=== PATIENT | male | born 1995 | race African-American/Black ===

== ENCOUNTER 2020-04-02 23:46 | Inpatient (IN) | payer OTHER ==
[2020-04-03] MEDS ORDERED: ACETAMINOPHEN 500 MG TABLET (FP) PO ONE (01:23)
[2020-04-03] MEDS ORDERED: SODIUM CHLORIDE 0.9% 500 ML INFUS.BAG IV ONE (01:23)
--- NOTE | 2020-04-03 01:25 | PDOC ---
History of Present Illness - General Chief Complaint: Palpitations Stated Complaint: PALPITATIONS Time Seen by Provider: 04/03/20 01:13 - History of Present Illness Initial Comments: Nazario Otoole is a 24 y/o male with PMH significant for HTN and HLD, presenting today with heart palpitations. Reports that he has had palpitations for many years and they occur intermittently. Unsure about what brings them on. Seen at [facility] last week. Reports that EKG there was normal. He was seen at Dr. Levy's office today and was told he had an abnormal EKG finding and to return in a week for a stress test. Today, presents with heart palpitations and headache. States that his symptoms have not changed nor worsened in the past week since being at [facility] and at the earth science teacher's office. No shortness of breath. No leg swelling. No cough. No back pain. Reports left sided chest pain that is worse with movement and palpation. No pleuritic chest pain. Pt states that he does not drink or use caffeine. Reports intermittent tobacco smoking hx. No other drug use. Past History - Medical History Allergies/Adverse Reactions: Allergies Allergy/AdvReac Type Severity Reaction Status Date / Time No Known Allergies Allergy Unverified 04/03/20 00:31 Home Medications: Ambulatory Orders Atorvastatin Ca [Lipitor] 40 mg PO HS #30 tablet 04/03/20 Metoprolol Succinate 25 mg PO BID #60 tab.sr 04/03/20 Omeprazole 40 mg PO DAILY #30 cap.sr 04/03/20 Cardiac Disorders: Yes COPD: No HTN: Yes Hypercholesterolemia: Yes - Psycho-Social/Smoking History Smoking History: Never smoked Have you smoked in the past 12 months: No Information on smoking cessation initiated: No - Substance Abuse Hx (Audit-C & DAST Scrn) How often the patient has a drink containing alcohol: Monthly or less Number of drinks the patient has on a typical day: 1 or 2 How often the patient has six or more drinks on one occasion: Less than monthly Score: In Men: 4 or > Positive; In Women: 3 or > Positive: 2 Screen Result (Pos requires Nsg. Audit-10AR): Negative In the last yr the pt used illegal drug/Rx for NonMed reason: No Score: Yes response is considered Positive: 0 Screen Result (Positive result requires Nsg. DAST-10): Negative Review of Systems - Review of Systems Comments:: GENERAL/CONSTITUTIONAL: No fever or chills. No weakness._ HEAD, EYES, EARS, NOSE AND THROAT: No change in vision. No change in hearing. No sore throat._ CARDIOVASCULAR: Reports heart palpitations and chest pain. No shortness of breath_ RESPIRATORY: Denies cough, hemoptysis_ GASTROINTESTINAL: No nausea, vomiting, diarrhea or constipation._ GENITOURINARY: No dysuria, frequency, or change in urination._ MUSCULOSKELETAL: No joint or muscle swelling or pain. No neck or back pain._ SKIN: No rash_ NEUROLOGIC: Reports headache. No vertigo, loss of consciousness, or change in strength/sensation._ ENDOCRINE: No increased thirst. No abnormal weight change_ HEMATOLOGIC/LYMPHATIC: No anemia, easy bleeding, or history of blood clots._ ALLERGIC/IMMUNOLOGIC: No hives or skin allergy._ *Physical Exam - Vital Signs Last Vital Signs Temp Pulse Resp BP Pulse Ox 98.8 F 70 18 132/72 98 04/03/20 15:22 04/03/20 15:22 04/03/20 15:22 04/03/20 15:22 04/03/20 11:01 - Physical Exam GENERAL: Awake, alert, and oriented to person/place/time, in no acute distress_ HEAD: No signs of trauma, normocephalic, atraumatic _ EYES: PERRLA, EOMI, sclera anicteric, conjunctiva clear_ ENT: Hearing grossly normal, nares patent, oropharynx clear without exudates. No uvular deviation. Moist mucosa_ NECK: Normal ROM, supple, no lymphadenopathy, JVD, or masses_ LUNGS: No distress, speaks in full sentences, clear to auscultation bilaterally _ HEART: Regular rate and rhythm, normal S1 and S2, no murmurs appreciated, peripheral pulses normal and equal bilaterally._ CHEST: TTP left anterior chest wall with no signs of obvious chest trauma or bruising. ABDOMEN: Soft, nontender, normoactive bowel sounds. No guarding, no rebound. No masses_ EXTREMITIES: Normal inspection, Normal range of motion, no edema. No clubbing or cyanosis_ NEUROLOGICAL: Cranial nerves II through XII grossly intact. Normal speech, normal gait, no focal sensorimotor deficits _ SKIN: Warm, Dry, normal turgor, no rashes or lesions noted_ ED Treatment Course - LABORATORY CBC & Chemistry Diagram: 04/03/20 02:00 04/03/20 02:00 - ADDITIONAL ORDERS Additional order review: Laboratory Results 04/03/20 04/03/20 02:00 02:00 Sodium 140 Potassium 3.7 Chloride 103 Carbon Dioxide 30 Anion Gap 7 L BUN 8.7 Creatinine 0.8 Est GFR (CKD-EPI)AfAm 142.89 Est GFR (CKD-EPI)NonAf 123.29 Random Glucose 81 Hemoglobin A1c % 5.4 Calcium 9.3 Magnesium 2.1 Total Bilirubin 0.5 AST 24 ALT 29 Alkaline Phosphatase 93 Creatine Kinase 164 CK-MB (CK-2) < 1.0 Troponin I < 0.02 Total Protein 7.9 Albumin 4.0 Triglycerides 70 Cholesterol 125 Total LDL Cholesterol 75 HDL Cholesterol 35 L TSH 1.25 04/03/20 02:00 RBC 5.22 MCV 88.0 MCHC 32.6 RDW 14.0 MPV 7.6 Neutrophils % 58.3 Lymphocytes % 29.6 Monocytes % 11.1 H Eosinophils % 0.5 Basophils % 0.5 - RADIOLOGY Radiology Studies Ordered: Category Date Time Status CHEST PA & LAT [RAD] Stat Radiology 04/03/20 01:23 Completed - Medications Given in the ED: ED Medications Discontinued Medications Generic Name Dose Route Start Last Admin Trade Name Freq PRN Reason Stop Dose Admin Acetaminophen 1,000 mg 04/03/20 01:23 04/03/20 02:41 Tylenol - PO 04/03/20 01:24 1,000 mg ONCE ONE Administration Acetaminophen 650 mg 04/03/20 15:27 04/03/20 15:44 Tylenol - PO 650 mg Q6H PRN Administration Fever Or Pain Enoxaparin Sodium 40 mg 04/03/20 10:00 04/03/20 09:33 Lovenox - SQ 40 mg DAILY RYANN Administration Potassium Chloride 40 meq 04/03/20 08:00 04/03/20 09:32 K-Dur - PO 04/03/20 08:01 40 meq ONCE ONE Administration Sodium Chloride 1,000 ml 04/03/20 01:23 04/03/20 02:41 Normal Saline - IV 04/03/20 01:24 1,000 ml ONCE ONE Administration Medical Decision Making - Medical Decision Making 04/03/20 01:24 24M presenting today with heart palpitations. Seen prior at [facility] last week and with Dr. Levy in his office today. -cbc, cmp -ekg, trop, cxr -tsh -fluids -tylenol 04/03/20 03:23 CXR negative for acute intrathoracic pathology. No cardiomegaly. EKG 78bpm, NSR, CO 108, QTc 414, minimal LVH, no ST elevation, compared to EKG on 09/2019 CO has mildly shortened. Nml axis. Labs reviewed. Laboratory Last Values WBC 9.1 K/mm3 (4.0-10.0) 04/03/20 02:00 RBC 5.22 M/mm3 (4.00-5.60) 04/03/20 02:00 Hgb 15.0 GM/dL (11.7-16.9) 04/03/20 02:00 Hct 45.9 % (35.4-49) 04/03/20 02:00 MCV 88.0 fl (80-96) 04/03/20 02:00 MCH 28.7 pg (25.7-33.7) 04/03/20 02:00 MCHC 32.6 g/dl (32.0-35.9) 04/03/20 02:00 RDW 14.0 % (11.9-15.9) 04/03/20 02:00 Plt Count 233 K/MM3 (134-434) 04/03/20 02:00 MPV 7.6 fl (7.5-11.1) 04/03/20 02:00 Absolute Neuts (auto) 5.3 K/mm3 (1.5-8.0) 04/03/20 02:00 Neutrophils % 58.3 % (42.8-82.8) 04/03/20 02:00 Lymphocytes % 29.6 % (8-40) 04/03/20 02:00 Monocytes % 11.1 % (3.8-10.2) H 04/03/20 02:00 Eosinophils % 0.5 % (0-4.5) 04/03/20 02:00 Basophils % 0.5 % (0-2.0) 04/03/20 02:00 Nucleated RBC % 0 % (0-0) 04/03/20 02:00 Sodium 140 mmol/L (136-145) 04/03/20 02:00 Potassium 3.7 mmol/L (3.5-5.1) 04/03/20 02:00 Chloride 103 mmol/L (98-107) 04/03/20 02:00 Carbon Dioxide 30 mmol/L (21-32) 04/03/20 02:00 Anion Gap 7 MMOL/L (8-16) L 04/03/20 02:00 BUN 8.7 mg/dL (7-18) 04/03/20 02:00 Creatinine 0.8 mg/dL (0.55-1.3) 04/03/20 02:00 Est GFR (CKD-EPI)AfAm 142.89 04/03/20 02:00 Est GFR (CKD-EPI)NonAf 123.29 04/03/20 02:00 Random Glucose 81 mg/dL (74-106) 04/03/20 02:00 Calcium 9.3 mg/dL (8.5-10.1) 04/03/20 02:00 Total Bilirubin 0.5 mg/dL (0.2-1) 04/03/20 02:00 AST 24 U/L (15-37) 04/03/20 02:00 ALT 29 U/L (13-61) 04/03/20 02:00 Alkaline Phosphatase 93 U/L (45-117) 04/03/20 02:00 Creatine Kinase 164 U/L (26-308) 04/03/20 02:00 Creatine Kinase Index No Result Required. 04/03/20 02:00 CK-MB (CK-2) < 1.0 ng/mL (0.5-3.6) 04/03/20 02:00 Troponin I < 0.02 ng/ml (0.00-0.05) 04/03/20 02:00 Total Protein 7.9 g/dl (6.4-8.2) 04/03/20 02:00 Albumin 4.0 g/dl (3.4-5.0) 04/03/20 02:00 TSH 1.25 uIU/ml (0.358-3.74) 04/03/20 02:00 Free T4 1.55 ng/dl (0.76-1.16) H 04/03/20 02:00 04/03/20 03:51 Pt reassessed. Reports continued palpitations. Given shortened CO on current EKG, and hx of a-fib on prior EKG in 2008, plan to admit for tele obs. 04/03/20 05:39 D/w Dr. Burns who accepts the patient for tele obs. Discharge - Discharge Information Problems reviewed: Yes Clinical Impression/Diagnosis: Palpitations Condition: Stable - Admission Yes - Follow up/Referral - Patient Discharge Instructions - Post Discharge Activity
--- NOTE | 2020-04-03 01:58 | PDOC ---
Documentation entered by Malathi Lopez SCRIBE, acting as scribe for Andrea Otoole MD. Andrea Otoole MD: This documentation has been prepared by the John white Lincy, SCRIBE, under my direction and personally reviewed by me in its entirety. I confirm that the documentation accurately reflects all work, treatment, procedures, and medical decision making performed by me. Attending Attestation - Resident Resident Name: Carlton Younger - ED Attending Attestation I have performed the following: I have examined & evaluated the patient, The case was reviewed & discussed with the resident, I agree w/resident's findings & plan, Exceptions are as noted - HPI HPI: 04/09/20 19:58 See resident HPI - Physicial Exam PE: 04/09/20 19:58 Agree with documented exam - Medical Decision Making 04/09/20 19:58 24M with palpitations, prior abnormal rhythms in past including paroxysmal episodes of AFib f/u labs, cxr, ekg dispo per clinical course ekg with shortened VT, pt persistently experiencing palpitations admit to tele obs Discharge - Discharge Information Problems reviewed: Yes Clinical Impression/Diagnosis: Palpitations Condition: Stable - Follow up/Referral - Patient Discharge Instructions - Post Discharge Activity
[2020-04-03 02:23] LABS: BASO % 0.5 % (0-2.0); EOS % 0.5 % (0-4.5); HEMATOCRIT 45.9 % (35.4-49); LYMPH % 29.6 % (8-40); MCH 28.7 pg (25.7-33.7); MCHC 32.6 g/dl (32.0-35.9); MEAN PLT VOLUME 7.6 fl (7.5-11.1); MONO % 11.1 % (3.8-10.2); NEUT % 58.3 % (42.8-82.8); PLATELET COUNT 233 K/MM3 (134-434); RBC 5.22 M/mm3 (4.00-5.60); WHITE BLOOD COUNT 9.1 K/mm3 (4.0-10.0)
[2020-04-03] MEDS ORDERED: ACETAMINOPHEN 325 MG TABLET (FP) ONE (02:34)
[2020-04-03 02:49] LABS: ALK PHOS 93 U/L (45-117); ANION GAP 7 MMOL/L (8-16); BILIRUBIN,TOTAL 0.5 mg/dL (0.2-1); BLOOD UREA NITROGEN 8.7 mg/dL (7-18); CALCIUM 9.3 mg/dL (8.5-10.1); CHLORIDE 103 mmol/L (98-107); CO2 30 mmol/L (21-32); CREATININE 0.8 mg/dL (0.55-1.3); GLUCOSE,RANDOM 81 mg/dL (74-106); POTASSIUM 3.7 mmol/L (3.5-5.1); SGOT/AST 24 U/L (15-37); SGPT/ALT 29 U/L (13-61); SODIUM 140 mmol/L (136-145); TOT PROT 7.9 g/dl (6.4-8.2)
--- NOTE | 2020-04-03 04:52 | PN ---
Teaching Attending Note Name of Resident: Judith Burns ATTENDING PHYSICIAN STATEMENT I saw and evaluated the patient. I reviewed the resident's note and discussed the case with the resident. I agree with the resident's findings and plan as documented. SUBJECTIVE: Patient is a 24 year old man with PMH of HTN, Tobacco use, ?Paroxysmal Afib in 2008, Marijuana use and HLD presenting to the ER with heart palpitations. Reports that he has had palpitations for many years and they occur intermittently. Unsure about what brings them on. Seen at [facility] last week. Reports that EKG there was normal. He was seen at Dr. Levy's office today and was told he had an abnormal EKG finding and to return in a week for a stress test. Has associated headache. Reports left sided chest pain that is worse with movement and palpation. 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 No shortness of breath, leg swelling, cough, fever, chills, back pain, dysuria or diarrhea. Says that he does not drink alcohol or use caffeine. Denies alcohol or illicit drug use. No sick contacts or recent travels. Family history of DM and HTN in both parents. OBJECTIVE: Alert Vital Signs Period Temp Pulse Resp BP Sys/Pelayo Pulse Ox Last 24 Hr 98.7 F 97 21 142/86 98 HEENT: No Jaundice, eye redness or discharge, PERRLA, EOMI. Normocephalic, atraumatic. External ears are normal and hearing is grossly intact. No nasal discharge. Neck: Supple, nontender. No palpable adenopathy or thyromegaly. No JVD Chest: Good effort. Clear to auscultation and percussion. Heart: Regular. No S3, rub or murmur Abdomen: Not distended, soft, nontender and no HSM. No rebound or guarding. Normal bowel sounds. Ext: Peripheral pulses intact. No leg edema. Skin: Warm and dry. No petechiae, rash or ecchymosis. Neuro: Alert. Oriented x3. CN 2-12 grossly intact. Sensation grossly intact in all four extremities and DTR are symmetric. Psych: Appropriate mood and affect. Good insight. Abnormal Lab Results 04/03/20 04/03/2020 02:00 02:00 02:00 Monocytes % 11.1 H Anion Gap 7 L Free T4 1.55 H Current Medications Generic Name Dose Route Start Last Admin Trade Name Juan Carlos PRN Reason Stop Dose Admin Enoxaparin Sodium 40 mg 04/03/20 10:00 Lovenox - SQ DAILY [facility] Home Medications Medication Instructions Recorded Atorvastatin Ca [Lipitor] 40 mg PO HS 04/03/20 Hydrochlorothiazide [Hctz -] 12.5 mg PO DAILY 04/03/20 Metoprolol Succinate 25 mg PO DAILY 04/03/20 Omeprazole 40 mg PO DAILY 04/03/20 ASSESSMENT AND PLAN: 1. Palpitations - No acute abnormality on CXR. Free T4 is elevated. EKG shows NSR at 78/minute and QTc 414, LVH with no significant ST-T wave changes. Initial troponin is negative. Free T4 is elevated - will consult Endocrine. Will admit to telemetry, get urinalysis, lipid profile, urine toxicology, ECHO, fasting lipids and consult Cardiology. May need prolonged outpatient cardiac monitoring. Viral testing for COVID-19 ordered and patient placed on airborne, droplet and contact isolation. 2. Tobacco Use Counseled on risks associated with tobacco use. We will provide patient all the necessary assistance to facilitate smoking cessation and prescribe Nicotine patch. 3. Morbid obesity Counseled on the risks associated with obesity. Will provide patient all the necessary assistance, counseling and positive reinforcement to facilitate weight loss. Consult museum director. 4. Hypertension Will restart suitable outpatient antihypertensive drugs when clinically appropriate. Subsequently, will revise regimen to ensure [id number] excellent BP control. Patient counseled on the injurious effects of uncontrolled hypertension. Nonpharmacologic measures to control hypertension like weight loss, salt restriction and exercise stressed. Importance of adherence to treatment regimen and attainment of normotension emphasized. 5. DVT prophylaxis - Lovenox 40 mg SQ q 12 hours. 6. Advance directives - Full code
--- NOTE | 2020-04-03 07:26 | HP ---
CHIEF COMPLAINT: My heart is beating fast PCP: Dr. ANDUJAR HISTORY OF PRESENT ILLNESS: 24 y M with a PMH of HTN, HLD, and Acid reflux, presents with noticeable rapid heart beat for 7 days. Associated with Dizziness, sweating, chest pain, SOB, blurry vision and headache. He reports that he has had palpitations for years intermittently with no precipitating events. Since last week his palpitations has increased in frequency. He also reports that he has stopped smoking Marijuana 2 weeks ago. He was recently seen at Dr. John's office and was told that he had an abnormal EKG. ER course was notable for: (1) Palpitations (2) (3) Recent Travel: Denies PAST MEDICAL HISTORY: HTN, HLD, Acid reflux PAST SURGICAL HISTORY: Denies Social History: Smoking: Denies Alcohol: Denies Drugs: Marujana, stopped 2 weeks ago Allergies No Known Allergies Allergy (Unverified 04/03/20 00:31) HOME MEDICATIONS: Home Medications Medication Instructions Recorded Atorvastatin Ca [Lipitor] 40 mg PO HS 04/03/20 Hydrochlorothiazide [Hctz -] 12.5 mg PO DAILY 04/03/20 Metoprolol Succinate 25 mg PO DAILY 04/03/20 Omeprazole 40 mg PO DAILY 04/03/20 REVIEW OF SYSTEMS CONSTITUTIONAL: Present: diaphoresis Absent: fever, chills, generalized weakness, malaise, loss of appetite HEENT: Absent: rhinorrhea, nasal congestion, throat pain, throat swelling, difficulty swallowing, mouth swelling, ear pain, eye pain, visual changes CARDIOVASCULAR: Present: Chest Pain, Palpitations Absent: lightheadedness, peripheral edema RESPIRATORY: Absent: cough, shortness of breath, dyspnea with exertion, orthopnea GASTROINTESTINAL: Absent: abdominal pain, abdominal distension, nausea, vomiting, diarrhea, constipation, GENITOURINARY: Absent: dysuria, frequency, urgency, hesitancy, hematuria, flank pain, genital pain NEUROLOGIC: Present: headache Absent: focal weakness or paresthesias, dizziness, bladder or bowel incontinence PSYCHIATRIC: Absent: anxiety, depression, PHYSICAL EXAMINATION Vital Signs - 24 hr 04/03/20 04/03/20 04/03/20 00:28 03:10 07:00 Temperature 98.7 F 98.7 F Pulse Rate 97 H 72 Pulse Rate [ 93 H Left Radial] Respiratory 21 H 20 18 Rate Blood Pressure 142/86 149/93 Blood Pressure 140/82 [Left Arm] O2 Sat by Pulse 98 97 Oximetry (%) GENERAL: Awake, alert, and fully oriented, in no acute distress. HEAD: Normal with no signs of trauma. EYES: Pupils equal, round and reactive to light, extraocular movements intact, sclera anicteric, conjunctiva clear. EARS, NOSE, THROAT: Ears normal, nares patent, oropharynx clear without exu dates. Moist mucous membranes. NECK: supple without lymphadenopathy, JVD, or masses. LUNGS: Breath sounds equal, clear to auscultation bilaterally. No wheezes, and no crackles. HEART: Increased rate and regular rhythm, normal S1 and S2 without murmur, rub or gallop, Tenderness to palpation of Left chest wall. ABDOMEN: Soft, nontender, not distended, normoactive bowel sounds, no guarding, no rebound, no masses. MUSCULOSKELETAL: Normal range of motion at all joints. No bony deformities or tenderness. No CVA tenderness. UPPER EXTREMITIES: 2+ pulses, warm, well-perfused. No cyanosis. No clubbing. No peripheral edema. LOWER EXTREMITIES: 2+ pulses, warm, well-perfused. No calf tenderness. No peripheral edema. PSYCHIATRIC: Cooperative. Good eye contact. Appropriate mood and affect. SKIN: Warm, dry, no rashes or lesions noted Laboratory Results - last 24 hr 04/03/20 04/03/20 04/03/20 02:00 02:00 02:00 WBC 9.1 RBC 5.22 Hgb 15.0 Hct 45.9 MCV 88.0 MCH 28.7 MCHC 32.6 RDW 14.0 Plt Count 233 MPV 7.6 Absolute Neuts (auto) 5.3 Neutrophils % 58.3 Lymphocytes % 29.6 Monocytes % 11.1 H Eosinophils % 0.5 Basophils % 0.5 Nucleated RBC % 0 Sodium 140 Potassium 3.7 Chloride 103 Carbon Dioxide 30 Anion Gap 7 L BUN 8.7 Creatinine 0.8 Est GFR (CKD-EPI)AfAm 142.89 Est GFR (CKD-EPI)NonAf 123.29 Random Glucose 81 Calcium 9.3 Total Bilirubin 0.5 AST 24 ALT 29 Alkaline Phosphatase 93 Creatine Kinase 164 Creatine Kinase Index No Result Required. CK-MB (CK-2) < 1.0 Troponin I < 0.02 Total Protein 7.9 Albumin 4.0 TSH 1.25 Free T4 1.55 H ASSESSMENT/PLAN: This is a 24 y M with a PMH of HTN, HLD, and Acid reflux, presents with noticeable rapid heart beat for 7 days. Associated with Dizziness, sweating, chest pain, SOB, blurry vision and headache. EKG was significant for MT shortening and evidence of LVH. He is admitted for Telemetry for Monitoring. #Palpitations: Assessment: -Hx of Afib finding on an EKG in 2008 -Worsening of his palpitations with increased frequency for 1 week -EKG revealed MT shortening and evidence of LVH Plan: - Ordered Echo with Doppler - Ordered UA, Urine Toxicology, - Consulted Cardio Henrry Sherman, will F/U with recs - Consulted Endo Smith Wooten for evaluation of Low T4 and Palpitations, will F/U with recs - Recommends prolonged Outpatient cardiac monitoring #Morbid Obesity: Assessment: - BMI 42.9 - Patient is concerned about his weight gain Plan: -Ordered Fasting lipid pannel - Consult commercial installer - counseled on the risks associated with Morbid Obesity - Will provide patient with information and positive reinforcements to help facilitate weight loss # DVT Prophylaxis: Levonox 40 mg # Disposition: Admit to Telemetry IVF: none GI: none Diet: Low sodium Consults: Cardio Henrry Sherman Endo Smith Wooten Visit type - Emergency Visit Emergency Visit: Yes ED Registration Date: 04/03/20 Care time: The patient presented to the Emergency Department on the above date and was hospitalized for further evaluation of their emergent condition. - New Patient This patient is new to me today: Yes Date on this admission: 04/04/20 - Critical Care Critical Care patient: No ATTENDING PHYSICIAN STATEMENT I saw and evaluated the patient. I reviewed the resident's note and discussed the case with the resident. I agree with the resident's findings and plan as documented. SUBJECTIVE: OBJECTIVE: ASSESSMENT AND PLAN:
[2020-04-03] MEDS ORDERED: POTASSIUM CHLORIDE TABS 20 MEQ TABLET.ER (FP) PO ONE (08:00)
[2020-04-03 08:12] LABS: CHOLESTEROL 125 mg/dL (50-200); HDL CHOLESTEROL 35 mg/dL (40-60); LDL CHOLESTEROL (ONLY SJRH) 75 mg/dL (5-100); MAGNESIUM 2.1 mg/dL (1.8-2.4); TRIGLYCERIDES 70 mg/dL (0-150)
[2020-04-03] MEDS ORDERED: ENOXAPARIN NA (PORCINE) 40 MG/0.4 ML DISP.SYRIN SQ SCH (10:00)
[2020-04-03 10:30] VITALS: TEMP 98.8
[2020-04-03 11:01] VITALS: BMI 37.9
--- NOTE | 2020-04-03 12:43 | CON.CARD ---
Consult Consult Specialty:: Cardiology (Coverage for Dr. Levy) Referred by:: Hosptitalist service Reason for Consultation:: Cardiac evaluation - History of Present Illness Chief Complaint: Palpitations History of Present Illness: Patient is a 24 year old male with history of HTN and hypercholesterolemia who presents with palpitations. He was seen by Dr. Levy in the office for this reason and was scheduled for stress testing and further cardiac work up. He reports palpitations for many years and they have occurred intermittently. He denies chest pain or shortness of breath. He denies fever or chills. He denies headache or lightheadedness. He denies nausea, vomiting, diarrhea or abdominal pain. Denies any syncope. Denies any drug use. - History Source History Provided By: Patient, Medical Record Limitations to Obtaining History: No Limitations - Past Surgical History Past Surgical History: Yes: None - Alcohol/Substance Use Hx Alcohol Use: No History of Substance Use: reports: Marijuana - Smoking History Smoking history: Former smoker Have you smoked in the past 12 months: Yes Aproximately how many cigarettes per day: 2 If you are a former smoker, when did you quit?: 6 months ago Home Medications - Allergies Allergies/Adverse Reactions: Allergies Allergy/AdvReac Type Severity Reaction Status Date / Time No Known Allergies Allergy Unverified 04/03/20 00:31 - Home Medications Home Medications: Ambulatory Orders Atorvastatin Ca [Lipitor] 40 mg PO HS 04/03/20 Hydrochlorothiazide [Hctz -] 12.5 mg PO DAILY 04/03/20 Metoprolol Succinate 25 mg PO DAILY 04/03/20 Omeprazole 40 mg PO DAILY 04/03/20 Review of Systems - Review of Systems Constitutional: denies: Chills, Fever Cardiovascular: reports: Palpitations. denies: Chest Pain, Shortness of Breath Respiratory: denies: Cough, Hemoptysis, Orthopnea, PND, SOB, SOB on Exertion, Wheezing Gastrointestinal: denies: Abdominal Pain, Constipation, Diarrhea, Melena, Nausea, Rectal Bleeding, Vomiting Musculoskeletal: denies: Back Pain, Joint Pain Neurological: denies: Dizziness, Headache, Seizure, Syncope Vital Signs: Vital Signs Temperature 98.8 F 04/03/20 11:01 Pulse Rate 87 04/03/20 11:01 Respiratory Rate 18 04/03/20 11:01 Blood Pressure 141/43 L 04/03/20 11:01 O2 Sat by Pulse Oximetry (%) 98 04/03/20 11:01 Eyes: Yes: PERRL HENT: Yes: Atraumatic Neck: Yes: Supple Respiratory: Yes: CTA Bilaterally Gastrointestinal: Yes: Normal Bowel Sounds, Soft. No: Tenderness Cardiovascular: Yes: Regular Rate and Rhythm JVD: No Carotid Bruit: No PMI: Non-Displaced Heart Sounds: Yes: S1, S2. No: Gallop Murmur: No: Systolic Murmur, Diastolic Murmur Edema: No - Other Data Labs, Other Data: CBC, BMP 04/03/20 02:00 04/03/20 02:00 Troponin, BNP 04/03/20 02:00 Troponin I < 0.02 Laboratory Results - last 24 hr 04/03/20 04/03/20 04/03/20 02:00 02:00 02:00 WBC 9.1 RBC 5.22 Hgb 15.0 Hct 45.9 MCV 88.0 MCH 28.7 MCHC 32.6 RDW 14.0 Plt Count 233 MPV 7.6 Absolute Neuts (auto) 5.3 Neutrophils % 58.3 Lymphocytes % 29.6 Monocytes % 11.1 H Eosinophils % 0.5 Basophils % 0.5 Nucleated RBC % 0 Sodium 140 Potassium 3.7 Chloride 103 Carbon Dioxide 30 Anion Gap 7 L BUN 8.7 Creatinine 0.8 Est GFR (CKD-EPI)AfAm 142.89 Est GFR (CKD-EPI)NonAf 123.29 Random Glucose 81 Hemoglobin A1c % Calcium 9.3 Magnesium 2.1 Total Bilirubin 0.5 AST 24 ALT 29 Alkaline Phosphatase 93 Creatine Kinase 164 Creatine Kinase Index No Result Required. CK-MB (CK-2) < 1.0 Troponin I < 0.02 Total Protein 7.9 Albumin 4.0 Triglycerides 70 Cholesterol 125 Total LDL Cholesterol 75 HDL Cholesterol 35 L TSH 1.25 Free T4 1.55 H 04/03/20 02:00 WBC RBC Hgb Hct MCV MCH MCHC RDW Plt Count MPV Absolute Neuts (auto) Neutrophils % Lymphocytes % Monocytes % Eosinophils % Basophils % Nucleated RBC % Sodium Potassium Chloride Carbon Dioxide Anion Gap BUN Creatinine Est GFR (CKD-EPI)AfAm Est GFR (CKD-EPI)NonAf Random Glucose Hemoglobin A1c % 5.4 Calcium Magnesium Total Bilirubin AST ALT Alkaline Phosphatase Creatine Kinase Creatine Kinase Index CK-MB (CK-2) Troponin I Total Protein Albumin Triglycerides Cholesterol Total LDL Cholesterol HDL Cholesterol TSH Free T4 Imaging - Results Chest X-ray: Report Reviewed (Unremarkable) Problem List - Problems (1) Palpitation Code(s): R00.2 - PALPITATIONS (2) HLD (hyperlipidemia) Code(s): E78.5 - HYPERLIPIDEMIA, UNSPECIFIED (3) HTN (hypertension) Code(s): I10 - ESSENTIAL (PRIMARY) HYPERTENSION Assessment/Plan 1. Palpitations with previous history of PAF (in 2008) [id number] 1 2. HTN 3. Hypercholesterolemia PLAN: 1. court recording monitor unrevealing 2. Continue Metoprolol ER 25 mg but may be increased to twice a day 3. Continue Atorvastatin 40 mg QHS 4. Continue HCTZ 12.5 mg QD 5. Echocardiography and ETT can be done as outpatient with Dr. Levy 6. Extended heart monitoring can be done as outpatient for further recommendation Discharge planning and outpatient follow up with Dr. Levy. Cardiac testing is scheduled next week Prateek Garcia MD
--- NOTE | 2020-04-03 12:52 | DS ---
Physical Exam: SUBJECTIVE: Patient seen and examined. Medically stable for discharge with follow up with stress test next week. OBJECTIVE: Vital Signs Period Temp Pulse Resp BP Sys/Pelayo Pulse Ox Last 24 Hr 98.7 F-98.8 F 72-97 18-21 140-149/43-93 97-98 PHYSICAL EXAM GENERAL: The patient is awake, alert, and fully oriented, obese,in no acute distress. HEAD: Normal with no signs of trauma. EYES: PERRL, extraocular movements intact, sclera anicteric, conjunctiva clear. ENT: Ears normal, nares patent, oropharynx clear without exudates, moist mucous membranes. NECK: Trachea midline, full range of motion, supple. LUNGS: Breath sounds equal, clear to auscultation bilaterally, no wheezes, no crackles, no accessory muscle use. HEART: Regular rate and rhythm, S1, S2 without murmur, rub or gallop. ABDOMEN: Soft, nontender, nondistended, obese abdomen, normoactive bowel sounds, no guarding, no rebound, no hepatosplenomegaly, no masses. EXTREMITIES: 2+ pulses, warm, well-perfused, no edema. NEUROLOGICAL: Cranial nerves II through XII grossly intact. Normal speech, gait not observed. PSYCH: Normal mood, normal affect. SKIN: Warm, dry, normal turgor, no rashes or lesions noted. LABS Laboratory Results - last 24 hr 04/03/20 04/03/20 04/03/20 02:00 02:00 02:00 WBC 9.1 RBC 5.22 Hgb 15.0 Hct 45.9 MCV 88.0 MCH 28.7 MCHC 32.6 RDW 14.0 Plt Count 233 MPV 7.6 Absolute Neuts (auto) 5.3 Neutrophils % 58.3 Lymphocytes % 29.6 Monocytes % 11.1 H Eosinophils % 0.5 Basophils % 0.5 Nucleated RBC % 0 Sodium 140 Potassium 3.7 Chloride 103 Carbon Dioxide 30 Anion Gap 7 L BUN 8.7 Creatinine 0.8 Est GFR (CKD-EPI)AfAm 142.89 Est GFR (CKD-EPI)NonAf 123.29 Random Glucose 81 Hemoglobin A1c % Calcium 9.3 Magnesium 2.1 Total Bilirubin 0.5 AST 24 ALT 29 Alkaline Phosphatase 93 Creatine Kinase 164 Creatine Kinase Index No Result Required. CK-MB (CK-2) < 1.0 Troponin I < 0.02 Total Protein 7.9 Albumin 4.0 Triglycerides 70 Cholesterol 125 Total LDL Cholesterol 75 HDL Cholesterol 35 L TSH 1.25 Free T4 1.55 H 04/03/20 02:00 WBC RBC Hgb Hct MCV MCH MCHC RDW Plt Count MPV Absolute Neuts (auto) Neutrophils % Lymphocytes % Monocytes % Eosinophils % Basophils % Nucleated RBC % Sodium Potassium Chloride Carbon Dioxide Anion Gap BUN Creatinine Est GFR (CKD-EPI)AfAm Est GFR (CKD-EPI)NonAf Random Glucose Hemoglobin A1c % 5.4 Calcium Magnesium Total Bilirubin AST ALT Alkaline Phosphatase Creatine Kinase Creatine Kinase Index CK-MB (CK-2) Troponin I Total Protein Albumin Triglycerides Cholesterol Total LDL Cholesterol HDL Cholesterol TSH Free T4 HOSPITAL COURSE: Date of Admission:04/03/20 Date of Discharge: 04/03/20 his is a 24 y M with a PMH of HTN, HLD, and Acid reflux, presents with noticeable rapid heart beat for 7 days. Monitoring on telemetry over night and remained in sinus rhythm Continue with home medications Stress test scheduled for next week with Dr Levy Follow up apointment to be scheduled with milieu technician to monitor TFTs Advised to avoid all drugs, ETOH, and caffeine. Medically stable for discharge to home Minutes to complete discharge: 35 Discharge Summary Problems reviewed: Yes Reason For Visit: PALPITATIONS Condition: Improved - Instructions Diet, Activity, Other Instructions: DISCHARGE YOUR VISIT You came to the hospital because you experiencing a fast heart rate. You were monitored overnight and your heart was in a normal sinus rhythm. Your thyroid tests were abnormal and it could be contributing to the racing heart. You can schedule an appointment with the milieu technician to follow your thyroid. No new medications were started. You have an appointment with Dr Ro for a stress test next week. The test for COVID-19 was sent. It is not resulted yet. Conitnue to isolate yourself and wear a mask. IF the test is POSITIVE someone will call you. MEDICATIONS Please continue to take your home medications as prescribed. There was no change s DIET Continue your home diet ADDITIONAL CARE Please make an appointment with the milieu technician to schedule an appointment ADDITIONAL INFORMATION Please call 911 or come directly to the emergency department if you experience unusual headache, vision change, shortness of breath, chest pain, numbness, tingling, loss of alertness/awareness, loss of function, unusual bleeding or any alarming symptoms. Thank you for allowing me to care for you. Fco De Dios, [facility], [facility] [phone] Referrals: Smith Smart MD [Staff Physician] - Prateek Garcia MD [Staff Physician] - Disposition: HOME - Home Medications Comprehensive Discharge Medication List: Ambulatory Orders Atorvastatin Ca [Lipitor] 40 mg PO HS 04/03/20 Hydrochlorothiazide [Hctz -] 12.5 mg PO DAILY 04/03/20 Metoprolol Succinate 25 mg PO DAILY 04/03/20 Omeprazole 40 mg PO DAILY 04/03/20 Prescription Drug Monitoring Program (I-STOP) results: I-STOP not reviewed Problem List - Problems (1) HTN (hypertension) Code(s): I10 - ESSENTIAL (PRIMARY) HYPERTENSION (2) HLD (hyperlipidemia) Code(s): E78.5 - HYPERLIPIDEMIA, UNSPECIFIED (3) Obesity (BMI 30-39.9) Code(s): E66.9 - OBESITY, UNSPECIFIED (4) GERD (gastroesophageal reflux disease) Code(s): K21.9 - GASTRO-ESOPHAGEAL REFLUX DISEASE WITHOUT ESOPHAGITIS (5) Tachycardia Code(s): R00.0 - TACHYCARDIA, UNSPECIFIED This patient is new to me today: Yes Date on this admission: 04/03/20 Emergency Visit: Yes ED Registration Date: 04/03/20 Care time: The patient presented to the Emergency Department on the above date and was hospitalized for further evaluation of their emergent condition. Critical Care patient: No - Discharge Referral Referred to [facility] Med P.C[facility] No
[2020-04-03 15:23] VITALS: BP 132/72; PULSE 70
[2020-04-03] MEDS ORDERED: ACETAMINOPHEN 325 MG TABLET (FP) PO PRN (15:27)
--- NOTE | 2020-04-05 14:18 | EKG ---
Test Reason : Blood Pressure : / mmHG Vent. Rate : 078 BPM Atrial Rate : 078 BPM P-R Int : 108 ms QRS Dur : 102 ms QT Int : 364 ms P-R-T Axes : 035 038 193 degrees QTc Int : 414 ms SINUS RHYTHM WITH SHORT NC MINIMAL VOLTAGE CRITERIA FOR LVH, MAY BE NORMAL VARIANT ABNORMAL ECG WHEN COMPARED WITH ECG OF 02-SEP-2019 10:03, NO SIGNIFICANT CHANGE WAS FOUND Confirmed by PEDRO LUIS YANES MD ([id number]) on 04/05/2020 2:17:58 PM Referred By: Confirmed By:PEDRO LUIS YANES MD
== END 2020-04-03 16:14 | disposition home or self-care (01) | DRG 424 ==
LOC: JER 23:46 → JERBED 04-03 05:38 → OBSVTOIN 04-03 06:24 → J4S 04-03 06:54
PROVIDERS: ADMIT Internal Medicine; ATTEND Nurse Practitioner Acute Care
DX: R94.6 Abnormal results of thyroid function studies (principal); E66.01 Morbid (severe) obesity due to excess calories; Z68.41 Body mass index [BMI] 40.0-44.9, adult; I48.0 Paroxysmal atrial fibrillation; I42.2 Other hypertrophic cardiomyopathy; R00.2 Palpitations; I10 Essential (primary) hypertension; E78.5 Hyperlipidemia, unspecified; K21.9 Gastro-esophageal reflux disease without esophagitis; Z87.891 Personal history of nicotine dependence
CPT/HCPCS: 36415; 71046-TC-FY; 80053; 80061; 82550; 82553; 83036; 83721; 83735; 84439; 84443; 84484; 85025; 93005; 93010; 99285-25; G0378; U0003

== ENCOUNTER 2020-11-17 00:22 | Observation (INO) | payer OTHER ==
[2020-11-17 01:17] LABS: URINE AMPHETAMINES NEGATIVE ng/ml (CUTOFF=500); URINE BARBITURATES NEGATIVE ng/ml (CUTOFF=200)
[2020-11-17 01:18] LABS: METHADONE, UR NEGATIVE ng/ml (CUTOFF=300); PHENCYCLIDINE,URINE NEGATIVE ng/ml (CUTOFF=25)
[2020-11-17 01:46] LABS: COCAINE, UR NEGATIVE ng/ml (CUTOFF=300); OPIATES, URI NEGATIVE ng/ml (CUTOFF=300); URINE BENZODIAZEPINES NEGATIVE ng/ml (CUTOFF=200)
[2020-11-17] MEDS ORDERED: ASPIRIN 81 MG CHEWABLE TABLETS PO ONE (01:48)
[2020-11-17 01:55] LABS: PH,URINE 5.5 (5.0-8.0); URINE APPEARANCE CLEAR; URINE BILIRUBIN NEGATIVE (NEGATIVE); URINE COLOR YELLOW; URINE GLUCOSE (UA) NEGATIVE (NEGATIVE); URINE KETONE NEGATIVE (NEGATIVE); URINE LEUK ESTERASE NEGATIVE (NEGATIVE); URINE NITRITE NEGATIVE (NEGATIVE); URINE PROTEIN NEGATIVE (NEGATIVE)
[2020-11-17 02:06] LABS: INR 1.11 (0.83-1.09); PROTHROMBIN TIME (PATIENT) 13.4 SEC (9.7-13.0)
[2020-11-17 02:08] LABS: ACTIVATED PTT 30.7 SECONDS (25.2-36.5)
[2020-11-17] MEDS ORDERED: ASPIRIN 81 MG CHEWABLE TABLETS ONE (02:09)
[2020-11-17 02:13] LABS: ALBUMIN 3.8 g/dl (3.4-5.0); BLOOD UREA NITROGEN 13.7 mg/dL (7-18); CALCIUM 8.8 mg/dL (8.5-10.1); MAGNESIUM 1.8 mg/dL (1.8-2.4)
[2020-11-17 02:16] LABS: CREATININE 0.9 mg/dL (0.55-1.3)
[2020-11-17 02:18] LABS: BILIRUBIN,TOTAL 0.5 mg/dL (0.2-1); TOT PROT 7.7 g/dl (6.4-8.2)
[2020-11-17 02:31] LABS: POTASSIUM 3.5 mmol/L (3.5-5.1)
[2020-11-17 02:36] LABS: BASO % 0.3 % (0-2.0); EOS % 0.6 % (0-4.5); HEMATOCRIT 41.4 % (35.4-49); HEMOGLOBIN 13.7 GM/dL (11.7-16.9); LYMPH % 31.4 % (8-40); MCH 29.2 pg (25.7-33.7); MCHC 33.2 g/dl (32.0-35.9); MEAN CELL VOLUME 87.9 fl (80-96); MEAN PLT VOLUME 7.9 fl (7.5-11.1); MONO % 9.6 % (3.8-10.2); NEUT % 58.1 % (42.8-82.8); PLATELET COUNT 252 K/MM3 (134-434); RBC 4.71 M/mm3 (4.00-5.60); RDW 13.8 % (11.9-15.9); WHITE BLOOD COUNT 6.6 K/mm3 (4.0-10.0)
[2020-11-17 08:50] LABS: BASO % 0.5 % (0-2.0); EOS % 0.9 % (0-4.5); HEMATOCRIT 39.7 % (35.4-49); HEMOGLOBIN 13.3 GM/dL (11.7-16.9); LYMPH % 36.1 % (8-40); MCH 29.5 pg (25.7-33.7); MCHC 33.6 g/dl (32.0-35.9); MEAN CELL VOLUME 87.7 fl (80-96); MEAN PLT VOLUME 7.3 fl (7.5-11.1); MONO % 11.7 % (3.8-10.2); NEUT % 50.8 % (42.8-82.8); PLATELET COUNT 225 K/MM3 (134-434); RBC 4.53 M/mm3 (4.00-5.60); RDW 13.5 % (11.9-15.9); WHITE BLOOD COUNT 8.2 K/mm3 (4.0-10.0)
[2020-11-17 09:16] LABS: POTASSIUM 3.5 mmol/L (3.5-5.1)
[2020-11-17 09:32] LABS: ALBUMIN 3.5 g/dl (3.4-5.0)
[2020-11-17 09:33] LABS: CALCIUM 8.9 mg/dL (8.5-10.1)
[2020-11-17 09:34] LABS: MAGNESIUM 1.9 mg/dL (1.8-2.4)
[2020-11-17 09:35] LABS: CREATININE 0.8 mg/dL (0.55-1.3)
[2020-11-17 09:37] LABS: PHOSPHOROUS 4.3 mg/dL (2.5-4.9); TOT PROT 6.9 g/dl (6.4-8.2)
[2020-11-17 09:38] LABS: BILIRUBIN,TOTAL 0.6 mg/dL (0.2-1)
[2020-11-17 09:39] LABS: BLOOD UREA NITROGEN 14.5 mg/dL (7-18)
[2020-11-17] MEDS: ENOXAPARIN NA (PORCINE) 40 MG/0.4 ML DISP.SYRIN SQ SCH (13:15)
[2020-11-17] MEDS: metoPROLOL SUCCINATE 25 MG TAB.SR.24H (FP) PO SCH ×2 (14:54→22:13)
[2020-11-17] MEDS ORDERED: ENOXAPARIN NA (PORCINE) 40 MG/0.4 ML DISP.SYRIN SQ ONE (14:57)
[2020-11-17] MEDS ORDERED: metoPROLOL SUCCINATE 25 MG TAB.SR.24H (FP) ONE ×2 (14:57→22:10)
[2020-11-17] MEDS ORDERED: ATORVASTATIN CA 40 MG TABLET (FP) PO SCH (22:00)
[2020-11-17] MEDS ORDERED: ATORVASTATIN CA 40 MG TABLET (FP) ONE (22:10)
[2020-11-18 03:03] VITALS: BMI 49.6
[2020-11-18 07:25] LABS: BASO % 0.4 % (0-2.0); EOS % 0.9 % (0-4.5); HEMATOCRIT 39.7 % (35.4-49); HEMOGLOBIN 13.4 GM/dL (11.7-16.9); LYMPH % 41.3 % (8-40); MCH 29.5 pg (25.7-33.7); MCHC 33.7 g/dl (32.0-35.9); MEAN CELL VOLUME 87.7 fl (80-96); MEAN PLT VOLUME 6.9 fl (7.5-11.1); MONO % 10.6 % (3.8-10.2); NEUT % 46.8 % (42.8-82.8); PLATELET COUNT 229 K/MM3 (134-434); RBC 4.53 M/mm3 (4.00-5.60); RDW 13.3 % (11.9-15.9); WHITE BLOOD COUNT 6.9 K/mm3 (4.0-10.0)
[2020-11-18 07:40] LABS: POTASSIUM 3.5 mmol/L (3.5-5.1)
[2020-11-18 07:44] LABS: CALCIUM 8.8 mg/dL (8.5-10.1)
[2020-11-18 07:45] LABS: BLOOD UREA NITROGEN 14.2 mg/dL (7-18)
[2020-11-18 07:48] LABS: CREATININE 0.8 mg/dL (0.55-1.3)
[2020-11-18] MEDS: ENOXAPARIN NA (PORCINE) 40 MG/0.4 ML DISP.SYRIN SQ SCH (11:06)
[2020-11-18] MEDS: metoPROLOL SUCCINATE 25 MG TAB.SR.24H (FP) PO SCH (11:07)
[2020-11-18 18:03] VITALS: BP 144/95; PULSE 74; TEMP 98.1
== END 2020-11-18 21:05 | disposition home or self-care (01) ==
LOC: JER 00:22 → JERBED 03:34 → UNDOADMOB 03:34 → INTOOBSV 04:48 → OBSVTOIN 04:48 → J6WEST-2 11-18 02:22 → JERBED 11-18 02:22 → J6WEST-2 11-18 16:28
PROVIDERS: ADMIT Internal Medicine; ATTEND Student in an Organized Health Care Education/Training Program
PROC: 3E023GC Introduction of Other Therapeutic Substance into Muscle, Percutaneous Approach (ICD-10-PCS; principal; 2020-11-18)
DX: R07.9 Chest pain, unspecified (principal); E04.1 Nontoxic single thyroid nodule; R00.2 Palpitations; E66.01 Morbid (severe) obesity due to excess calories; Z68.42 Body mass index [BMI] 45.0-49.9, adult; R00.0 Tachycardia, unspecified; I10 Essential (primary) hypertension; E78.5 Hyperlipidemia, unspecified; F12.10 Cannabis abuse, uncomplicated; E11.9 Type 2 diabetes mellitus without complications; Z29.9 Encounter for prophylactic measures, unspecified; F19.10 Other psychoactive substance abuse, uncomplicated; R01.1 Cardiac murmur, unspecified; M25.60 Stiffness of unspecified joint, not elsewhere classified
CPT/HCPCS: 36415; 71046-TC-FY; 80048; 80053; 80061; 80307; 81003; 82550; 82553; 83036; 83721; 83735; 84100; 84439; 84443; 84479; 84484; 85025; 85610; 85730; 93005; 93010; 93306-TC; 93351; 96372; 99285-25; C9803; G0378; U0003

== ENCOUNTER 2021-01-28 03:51 | Inpatient (IN) | payer OTHER ==
[2021-01-28] MEDS ORDERED: METOPROLOL TARTRATE 5 MG/5 ML VIAL ONE (04:25)
[2021-01-28] MEDS ORDERED: dilTIAZem HCL 125 MG/25 ML - 25 ML VIAL ONE ×4 (04:44→10:33)
[2021-01-28] MEDS ORDERED: SODIUM CHLORIDE 1,000 ML IV STA (04:45)
[2021-01-28] MEDS ORDERED: dilTIAZem HCL 50 MG/10 ML - 10 ML VIAL IVPUSH ONE ×2 (04:45→05:47)
[2021-01-28] MEDS ORDERED: dilTIAZem HCL 50 MG/10 ML - 10 ML VIAL ONE ×2 (04:55→15:55)
[2021-01-28] MEDS: DILTIAZEM INJECTION 125 MG in SODIUM CHLORIDE 100 ML IVPB SCH (05:06)
[2021-01-28 05:18] LABS: CHLORIDE 110 mmol/L (98-107); SODIUM 142 mmol/L (136-145)
[2021-01-28 05:21] LABS: ALBUMIN 3.3 g/dl (3.4-5.0); ANION GAP 5 MMOL/L (8-16); BLOOD UREA NITROGEN 13.7 mg/dL (7-18); CALCIUM 8.7 mg/dL (8.5-10.1); CO2 26 mmol/L (21-32)
[2021-01-28 05:22] LABS: BASO % 0.5 % (0-2.0); EOS % 1.8 % (0-4.5); GLUCOSE,RANDOM 97 mg/dL (74-106); HEMATOCRIT 42.1 % (35.4-49); HEMOGLOBIN 13.8 GM/dL (11.7-16.9); MCH 28.9 pg (25.7-33.7); MCHC 32.8 g/dl (32.0-35.9); MEAN CELL VOLUME 88.2 fl (80-96); MEAN PLT VOLUME 7.6 fl (7.5-11.1); MONO % 11.1 % (3.8-10.2); NEUT % 52.6 % (42.8-82.8); PLATELET COUNT 249 K/MM3 (134-434); RBC 4.77 M/mm3 (4.00-5.60); RDW 13.5 % (11.9-15.9); WHITE BLOOD COUNT 7.9 K/mm3 (4.0-10.0)
[2021-01-28 05:23] LABS: SGPT/ALT 48 U/L (13-61)
[2021-01-28 05:24] LABS: CREATININE 0.7 mg/dL (0.55-1.3); SGOT/AST 37 U/L (15-37)
[2021-01-28 05:25] LABS: BILIRUBIN,TOTAL 0.3 mg/dL (0.2-1); TOT PROT 6.9 g/dl (6.4-8.2)
[2021-01-28 05:26] LABS: ALK PHOS 68 U/L (45-117)
[2021-01-28 05:33] LABS: INR 0.89 (0.83-1.09)
[2021-01-28 05:35] LABS: ACTIVATED PTT 31.4 SECONDS (25.2-36.5)
[2021-01-28] MEDS: dilTIAZem HCL 60 MG TABLET PO SCH ×4 (06:45→18:58)
[2021-01-28] MEDS ORDERED: dilTIAZem HCL 60 MG TABLET ONE (07:44)
[2021-01-28] MEDS ORDERED: dilTIAZem HCL 50 MG/10 ML - 10 ML VIAL IVPUSH PRN ×2 (08:15→08:18)
[2021-01-28] MEDS: SODIUM CHLORIDE 1,000 ML IV SCH (08:36)
[2021-01-28 09:20] LABS: CHOLESTEROL 159 mg/dL (50-200); TRIGLYCERIDES 59 mg/dL (0-150)
[2021-01-28 09:22] LABS: LDL CHOLESTEROL (ONLY SJRH) 93 mg/dL (5-100)
[2021-01-28 09:23] LABS: HDL CHOLESTEROL 47 mg/dL (40-60)
[2021-01-28] MEDS ORDERED: ENOXAPARIN NA (PORCINE) 40 MG/0.4 ML DISP.SYRIN SQ SCH (10:00)
[2021-01-28] MEDS ORDERED: IBUPROFEN 400 MG TABLET (FP) PO ONE (10:05)
[2021-01-28] MEDS: ASPIRIN 81 MG CHEWABLE TABLETS PO SCH (10:35)
[2021-01-28] MEDS: ENOXAPARIN NA (PORCINE) 40 MG/0.4 ML DISP.SYRIN SQ SCH ×2 (10:35→21:30)
[2021-01-28] MEDS: PANTOPRAZOLE 40 MG TABLET PO SCH (10:35)
[2021-01-28] MEDS ORDERED: ENOXAPARIN NA (PORCINE) 40 MG/0.4 ML DISP.SYRIN SQ ONE (10:37)
[2021-01-28] MEDS ORDERED: PANTOPRAZOLE 40 MG TABLET ONE (10:37)
[2021-01-28] MEDS ORDERED: ASPIRIN 81 MG CHEWABLE TABLETS ONE (10:37)
[2021-01-28 11:29] LABS: URINE APPEARANCE CLEAR; URINE BILIRUBIN NEGATIVE (NEGATIVE); URINE COLOR YELLOW; URINE GLUCOSE (UA) NEGATIVE (NEGATIVE); URINE KETONE NEGATIVE (NEGATIVE); URINE LEUK ESTERASE NEGATIVE (NEGATIVE); URINE NITRITE NEGATIVE (NEGATIVE); URINE PROTEIN NEGATIVE (NEGATIVE); URINE UROBILINOGEN 0.2 mg/dL (0.2-1.0)
[2021-01-28 11:38] LABS: COCAINE, UR NEGATIVE ng/ml (CUTOFF=300); URINE BARBITURATES NEGATIVE ng/ml (CUTOFF=200); URINE BENZODIAZEPINES NEGATIVE ng/ml (CUTOFF=200)
[2021-01-28 11:40] LABS: METHADONE, UR NEGATIVE ng/ml (CUTOFF=300); OPIATES, URI NEGATIVE ng/ml (CUTOFF=300); PHENCYCLIDINE,URINE NEGATIVE ng/ml (CUTOFF=25); URINE AMPHETAMINES NEGATIVE ng/ml (CUTOFF=500)
[2021-01-28] MEDS ORDERED: METOPROLOL TARTRATE 5 MG/5 ML VIAL IVPUSH PRN (13:03)
[2021-01-28] MEDS ORDERED: METOPROLOL TARTRATE 25 MG TABLET (FP) PO SCH (13:15)
[2021-01-28] MEDS: metoPROLOL SUCCINATE 25 MG TAB.SR.24H (FP) PO SCH ×3 (13:29→21:23)
[2021-01-28] MEDS ORDERED: ACETAMINOPHEN 325 MG TABLET (FP) PO ONE (20:15)
[2021-01-28] MEDS ORDERED: ATORVASTATIN CA 20 MG TABLET (FP) PO SCH (22:00)
[2021-01-28 23:04] VITALS: BMI 51.6
[2021-01-29] MEDS: dilTIAZem HCL 60 MG TABLET PO SCH ×4 (00:32→17:50)
[2021-01-29] MEDS: DILTIAZEM INJECTION 125 MG in SODIUM CHLORIDE 100 ML IVPB SCH ×2 (00:57→05:03)
[2021-01-29 07:27] LABS: BASO % 0.4 % (0-2.0); EOS % 2.1 % (0-4.5); HEMATOCRIT 40.2 % (35.4-49); HEMOGLOBIN 13.1 GM/dL (11.7-16.9); LYMPH % 38.8 % (8-40); MCH 28.8 pg (25.7-33.7); MCHC 32.6 g/dl (32.0-35.9); MEAN CELL VOLUME 88.4 fl (80-96); MEAN PLT VOLUME 7.8 fl (7.5-11.1); MONO % 12.3 % (3.8-10.2); NEUT % 46.4 % (42.8-82.8); PLATELET COUNT 249 K/MM3 (134-434); RBC 4.54 M/mm3 (4.00-5.60); RDW 13.6 % (11.9-15.9); WHITE BLOOD COUNT 7.5 K/mm3 (4.0-10.0)
[2021-01-29] MEDS: SODIUM CHLORIDE 1,000 ML IV SCH (09:03)
[2021-01-29] MEDS: metoPROLOL SUCCINATE 25 MG TAB.SR.24H (FP) PO SCH (09:04)
[2021-01-29] MEDS: ASPIRIN 81 MG CHEWABLE TABLETS PO SCH (09:04)
[2021-01-29] MEDS: ENOXAPARIN NA (PORCINE) 40 MG/0.4 ML DISP.SYRIN SQ SCH (09:05)
[2021-01-29] MEDS: PANTOPRAZOLE 40 MG TABLET PO SCH (09:05)
[2021-01-29 16:09] VITALS: TEMP 98.1
[2021-01-29 18:08] VITALS: BP 138/81; PULSE 78
== END 2021-01-29 18:11 | disposition home or self-care (01) | DRG 201 ==
LOC: JER 03:51 → JERBED 05:03 → J4W 19:33
PROVIDERS: ADMIT Internal Medicine; ATTEND Nurse Practitioner Family
DX: I48.0 Paroxysmal atrial fibrillation (principal); I10 Essential (primary) hypertension; E78.5 Hyperlipidemia, unspecified; E78.00 Pure hypercholesterolemia, unspecified; F12.10 Cannabis abuse, uncomplicated; R00.0 Tachycardia, unspecified; E66.01 Morbid (severe) obesity due to excess calories; Z68.43 Body mass index [BMI] 50.0-59.9, adult; Z91.14 Patient's other noncompliance with medication regimen
CPT/HCPCS: 36415; 71045-TC-FY; 80053; 80061; 80307; 81003; 82550; 82553; 83036; 83721; 83735; 84100; 84443; 84484; 85025; 85027; 85610; 85730; 93005; 93010; 99291; C9803; U0003; U0005

== ENCOUNTER 2022-03-30 18:25 | Emergency (ER) | payer OTHER ==
[2022-03-30 18:38] VITALS: BP 106/75; PULSE 91; TEMP 98.3; BMI 51.7
[2022-03-30 21:19] LABS: BASO % 0.4 % (0-2.0); EOS % 0.3 % (0-4.5); HEMOGLOBIN 15.1 GM/dL (11.7-16.9); LYMPH % 27.9 % (8-40); MCHC 32.9 g/dl (32.0-35.9); MEAN CELL VOLUME 85.1 fl (80-96); MONO % 9.7 % (3.8-10.2); NEUT % 61.7 % (42.8-82.8); PLATELET COUNT 289 10^3/uL (134-434); WHITE BLOOD COUNT 8.1 K/mm3 (4.0-10.0)
[2022-03-30 21:41] LABS: ALBUMIN 4.3 g/dl (3.4-5.0); CALCIUM 9.3 mg/dL (8.5-10.1)
[2022-03-30 21:42] LABS: BLOOD UREA NITROGEN 8.6 mg/dL (7-18)
[2022-03-30 21:45] LABS: CREATININE 0.9 mg/dL (0.55-1.3)
[2022-03-30 21:46] LABS: BILIRUBIN,TOTAL 0.5 mg/dL (0.2-1); TOT PROT 8.6 g/dl (6.4-8.2)
== END 2022-03-31 00:32 | disposition home or self-care (01) ==
LOC: JERFT 18:25 → JER 18:25 → JERFT 03-31 00:32
DX: R07.9 Chest pain, unspecified (principal)
CPT/HCPCS: 36415; 71046-TC-FY; 80053; 84484; 85025; 93005; 93010; 99285-25

== ENCOUNTER 2022-04-08 13:45 | Observation (INO) | payer OTHER ==
[2022-04-08] MEDS ORDERED: SODIUM CHLORIDE 1,000 ML IV STA (15:21)
[2022-04-08] MEDS ORDERED: MAGNESIUM CITRATE 300 ML BOTTLE PO ONE (15:33)
[2022-04-08] MEDS ORDERED: MAGNESIUM CITRATE 300 ML BOTTLE ONE (15:48)
[2022-04-08 16:09] LABS: BASO % 0.5 % (0-2.0); EOS % 0.3 % (0-4.5); HEMATOCRIT 45.7 % (35.4-49); HEMOGLOBIN 15.1 GM/dL (11.7-16.9); MCH 27.9 pg (25.7-33.7); MEAN CELL VOLUME 84.7 fl (80-96); MEAN PLT VOLUME 7.4 fl (7.5-11.1); MONO % 9.5 % (3.8-10.2); NEUT % 57.7 % (42.8-82.8); PLATELET COUNT 309 10^3/uL (134-434); RBC 5.39 M/mm3 (4.00-5.60); WHITE BLOOD COUNT 6.7 K/mm3 (4.0-10.0)
[2022-04-08 16:19] LABS: CHLORIDE 105 mmol/L (98-107); SODIUM 137 mmol/L (136-145)
[2022-04-08 16:21] LABS: ALBUMIN 3.8 g/dl (3.4-5.0); CALCIUM 9.3 mg/dL (8.5-10.1); CO2 27 mmol/L (21-32)
[2022-04-08 16:22] LABS: BLOOD UREA NITROGEN 8.4 mg/dL (7-18); GLUCOSE,RANDOM 87 mg/dL (74-106); LIPASE 21 U/L (73-393)
[2022-04-08 16:24] LABS: CREATININE 0.9 mg/dL (0.55-1.3); SGOT/AST 58 U/L (15-37); SGPT/ALT 36 U/L (13-61)
[2022-04-08 16:26] LABS: BILIRUBIN,TOTAL 0.5 mg/dL (0.2-1); TOT PROT 8.6 g/dl (6.4-8.2)
[2022-04-08 16:27] LABS: ALK PHOS 94 U/L (45-117); ANION GAP 5 MMOL/L (8-16)
[2022-04-08] MEDS ORDERED: MAG HYDROX/AL HYDROX/SIMETH 30 ML UNIT-DOSE CUP PO ONE (19:38)
[2022-04-08] MEDS ORDERED: ACETAMINOPHEN 1000 MG/100 ML BAG IVPB ONE (19:38)
[2022-04-08] MEDS ORDERED: FAMOTIDINE 20 MG/50 ML IVPB 20 MG/50 ML MG IVPB ONE ×2 (19:38→20:16)
[2022-04-08] MEDS ORDERED: MAG HYDROX/AL HYDROX/SIMETH 30 ML UNIT-DOSE CUP ONE (20:15)
[2022-04-08] MEDS ORDERED: ACETAMINOPHEN INJECTION 100 ML IVPB ONE (20:15)
[2022-04-08 20:35] LABS: CALCIUM 9.1 mg/dL (8.5-10.1)
[2022-04-08 20:36] LABS: BLOOD UREA NITROGEN 7.3 mg/dL (7-18)
[2022-04-08 20:39] LABS: CREATININE 0.8 mg/dL (0.55-1.3)
[2022-04-08] MEDS ORDERED: busPIRone HCL 10 MG TABLET (FP) PO ONE (21:06)
[2022-04-08] MEDS ORDERED: busPIRone HCL 5 MG TABLET ONE (21:29)
[2022-04-08] MEDS ORDERED: busPIRone HCL 5 MG TABLET PO ONE (21:30)
[2022-04-09 03:32] VITALS: BMI 53.5
[2022-04-09] MEDS: SENNOSIDES 8.6MG TABLET (FP) PO SCH ×3 (03:46→21:15)
[2022-04-09] MEDS: metoPROLOL SUCCINATE 25 MG TAB.SR.24H (FP) PO SCH ×3 (03:51→21:15)
[2022-04-09 07:34] LABS: BASO % 0.4 % (0-2.0); EOS % 0.7 % (0-4.5); HEMATOCRIT 41.3 % (35.4-49); HEMOGLOBIN 13.6 GM/dL (11.7-16.9); LYMPH % 42.2 % (8-40); MCH 28.3 pg (25.7-33.7); MEAN CELL VOLUME 85.7 fl (80-96); MEAN PLT VOLUME 7.2 fl (7.5-11.1); MONO % 10.7 % (3.8-10.2); PLATELET COUNT 252 10^3/uL (134-434); RBC 4.82 M/mm3 (4.00-5.60); RDW 13.6 % (11.9-15.9); WHITE BLOOD COUNT 7.3 K/mm3 (4.0-10.0)
[2022-04-09 07:47] LABS: CALCIUM 8.3 mg/dL (8.5-10.1); MAGNESIUM 2.4 mg/dL (1.8-2.4)
[2022-04-09 07:48] LABS: ALBUMIN 3.6 g/dl (3.4-5.0)
[2022-04-09 07:50] LABS: CREATININE 0.8 mg/dL (0.55-1.3); PHOSPHOROUS 4.2 mg/dL (2.5-4.9)
[2022-04-09 07:52] LABS: BILIRUBIN,TOTAL 0.4 mg/dL (0.2-1); TOT PROT 7.1 g/dl (6.4-8.2)
[2022-04-09] MEDS ORDERED: POLYETHYLENE GLYCOL (HEALTHYLAX) 3350 17 GM PACKET PO SCH (10:00)
[2022-04-09] MEDS ORDERED: DOCUSATE SODIUM 100 MG CAPSULE (FP) PO SCH (10:00)
[2022-04-09] MEDS: BACITRACIN 15 GM TUBE TOPICAL OINTMENT TP SCH (10:56)
[2022-04-09] MEDS: ASPIRIN COATED 81 MG TABLET.EC PO SCH (10:57)
[2022-04-09] MEDS: ENOXAPARIN NA (PORCINE) 40 MG/0.4 ML DISP.SYRIN SQ SCH (10:57)
[2022-04-09] MEDS: DOCUSATE SODIUM 100 MG CAPSULE (FP) PO SCH ×2 (14:28→21:15)
[2022-04-09] MEDS: ATORVASTATIN CA 20 MG TABLET (FP) PO SCH (21:15)
[2022-04-09 22:57] LABS: URINE APPEARANCE CLEAR; URINE BILIRUBIN NEGATIVE (NEGATIVE); URINE COLOR YELLOW; URINE GLUCOSE (UA) NEGATIVE (NEGATIVE); URINE KETONE NEGATIVE (NEGATIVE); URINE LEUK ESTERASE NEGATIVE (NEGATIVE); URINE NITRITE NEGATIVE (NEGATIVE); URINE PROTEIN NEGATIVE (NEGATIVE); URINE UROBILINOGEN 0.2 mg/dL (0.2-1.0)
[2022-04-09 23:19] LABS: COCAINE, UR NEGATIVE (NEGATIVE); METHADONE, UR NEGATIVE (NEGATIVE); OPIATES, URI NEGATIVE (NEGATIVE); PHENCYCLIDINE,URINE NEGATIVE (NEGATIVE); URINE AMPHETAMINES NEGATIVE (NEGATIVE); URINE BARBITURATES NEGATIVE (NEGATIVE); URINE BENZODIAZEPINES NEGATIVE (NEGATIVE)
[2022-04-10] MEDS: DOCUSATE SODIUM 100 MG CAPSULE (FP) PO SCH ×3 (06:07→21:08)
[2022-04-10] MEDS: ASPIRIN COATED 81 MG TABLET.EC PO SCH (09:38)
[2022-04-10] MEDS: metoPROLOL SUCCINATE 25 MG TAB.SR.24H (FP) PO SCH ×2 (09:38→21:07)
[2022-04-10] MEDS: BACITRACIN 15 GM TUBE TOPICAL OINTMENT TP SCH (09:38)
[2022-04-10] MEDS: SENNOSIDES 8.6MG TABLET (FP) PO SCH ×2 (09:38→21:08)
[2022-04-10] MEDS: POLYETHYLENE GLYCOL (HEALTHYLAX) 3350 17 GM PACKET PO SCH ×2 (09:38→21:08)
[2022-04-10] MEDS: ENOXAPARIN NA (PORCINE) 40 MG/0.4 ML DISP.SYRIN SQ SCH (09:38)
[2022-04-10 12:53] LABS: BASO % 0.5 % (0-2.0); EOS % 0.9 % (0-4.5); HEMATOCRIT 43.1 % (35.4-49); HEMOGLOBIN 14.3 GM/dL (11.7-16.9); MCH 28.3 pg (25.7-33.7); MCHC 33.2 g/dl (32.0-35.9); MEAN CELL VOLUME 85.1 fl (80-96); MEAN PLT VOLUME 7.2 fl (7.5-11.1); MONO % 8.8 % (3.8-10.2); NEUT % 57.8 % (42.8-82.8); PLATELET COUNT 252 10^3/uL (134-434); RBC 5.07 M/mm3 (4.00-5.60); RDW 13.6 % (11.9-15.9); WHITE BLOOD COUNT 5.8 K/mm3 (4.0-10.0)
[2022-04-10 13:11] LABS: ALBUMIN 3.6 g/dl (3.4-5.0); BLOOD UREA NITROGEN 10.7 mg/dL (7-18)
[2022-04-10 13:13] LABS: CREATININE 0.9 mg/dL (0.55-1.3)
[2022-04-10 13:15] LABS: BILIRUBIN,TOTAL 0.5 mg/dL (0.2-1); TOT PROT 7.5 g/dl (6.4-8.2)
[2022-04-10] MEDS: ATORVASTATIN CA 20 MG TABLET (FP) PO SCH (21:08)
[2022-04-11] MEDS: DOCUSATE SODIUM 100 MG CAPSULE (FP) PO SCH (05:53)
[2022-04-11] MEDS: ENOXAPARIN NA (PORCINE) 40 MG/0.4 ML DISP.SYRIN SQ SCH (09:49)
[2022-04-11] MEDS: ASPIRIN COATED 81 MG TABLET.EC PO SCH (09:50)
[2022-04-11] MEDS: POLYETHYLENE GLYCOL (HEALTHYLAX) 3350 17 GM PACKET PO SCH (09:50)
[2022-04-11] MEDS: metoPROLOL SUCCINATE 25 MG TAB.SR.24H (FP) PO SCH ×2 (09:50→21:26)
[2022-04-11] MEDS: BACITRACIN 15 GM TUBE TOPICAL OINTMENT TP SCH (09:50)
[2022-04-11] MEDS: SENNOSIDES 8.6MG TABLET (FP) PO SCH ×3 (09:50→21:26)
[2022-04-11] MEDS ORDERED: MAG HYDROX/AL HYDROX/SIMETH 30 ML UNIT-DOSE CUP PO PRN (13:07)
[2022-04-11] MEDS: ATORVASTATIN CA 20 MG TABLET (FP) PO SCH (21:26)
[2022-04-12 08:58] VITALS: BP 125/73; PULSE 86; TEMP 97.8
[2022-04-12] MEDS: ENOXAPARIN NA (PORCINE) 40 MG/0.4 ML DISP.SYRIN SQ SCH (09:58)
[2022-04-12] MEDS: ASPIRIN COATED 81 MG TABLET.EC PO SCH (09:58)
[2022-04-12] MEDS: metoPROLOL SUCCINATE 25 MG TAB.SR.24H (FP) PO SCH (09:59)
[2022-04-12] MEDS: SENNOSIDES 8.6MG TABLET (FP) PO SCH (09:59)
[2022-04-12] MEDS ORDERED: PANTOPRAZOLE 20 MG TABLET PO SCH (10:00)
[2022-04-12] MEDS ORDERED: POLYETHYLENE GLYCOL (HEALTHYLAX) 3350 17 GM PACKET PO SCH (10:00)
[2022-04-12] MEDS: BACITRACIN 15 GM TUBE TOPICAL OINTMENT TP SCH (10:04)
== END 2022-04-12 14:13 | disposition home or self-care (01) ==
LOC: JER 13:45 → JERBED 20:08 → J4W 04-09 03:47
PROVIDERS: ADMIT Hospitalist
PROC: 3E033NZ Introduction of Analgesics, Hypnotics, Sedatives into Peripheral Vein, Percutaneous Approach (ICD-10-PCS; principal; 2022-04-08)
PROC: 3E023GC Introduction of Other Therapeutic Substance into Muscle, Percutaneous Approach (ICD-10-PCS; 2022-04-08)
PROC: 3E033GC Introduction of Other Therapeutic Substance into Peripheral Vein, Percutaneous Approach (ICD-10-PCS; 2022-04-08)
PROC: 3E0337Z Introduction of Electrolytic and Water Balance Substance into Peripheral Vein, Percutaneous Approach (ICD-10-PCS; 2022-04-08)
DX: I24.9 Acute ischemic heart disease, unspecified (principal); K21.9 Gastro-esophageal reflux disease without esophagitis; E78.5 Hyperlipidemia, unspecified; I48.91 Unspecified atrial fibrillation; K59.00 Constipation, unspecified; R12 Heartburn; R07.9 Chest pain, unspecified; E78.00 Pure hypercholesterolemia, unspecified; F41.8 Other specified anxiety disorders; I10 Essential (primary) hypertension; E66.01 Morbid (severe) obesity due to excess calories; Z87.891 Personal history of nicotine dependence; Z68.43 Body mass index [BMI] 50.0-59.9, adult
CPT/HCPCS: 0241U-QW; 36415; 74018-TC-FY; 74176-TC; 80048; 80053; 80061; 80307; 81003; 83690; 83735; 84100; 84132; 84443; 84484; 85025; 87086; 93005; 93010; 93351; 96361; 96365; 96372; 96375; 99285-25; G0378

== ENCOUNTER 2022-04-27 14:26 | Emergency (ER) | payer OTHER ==
[2022-04-27 15:05] VITALS: BP 136/83; PULSE 99; RESP 20; TEMP 98; BMI 53.2
== END 2022-04-27 17:32 | disposition home or self-care (01) ==
LOC: JER 14:26
DX: U07.1 COVID-19 (principal)
CPT/HCPCS: 0241U-QW; 99283-25

== ENCOUNTER 2022-07-05 14:08 | Emergency (ER) | payer OTHER ==
[2022-07-05 14:19] VITALS: RESP 16; TEMP 98.6; BMI 50.8
[2022-07-05 16:18] LABS: BASO % 0.7 % (0-2.0); EOS % 0.7 % (0-4.5); HEMATOCRIT 43.6 % (35.4-49); HEMOGLOBIN 14.1 GM/dL (11.7-16.9); LYMPH % 33.8 % (8-40); MCH 27.8 pg (25.7-33.7); MCHC 32.3 g/dl (32.0-35.9); MEAN CELL VOLUME 86.1 fl (80-96); MEAN PLT VOLUME 7.1 fl (7.5-11.1); MONO % 7.9 % (3.8-10.2); NEUT % 56.9 % (42.8-82.8); PLATELET COUNT 258 10^3/uL (134-434); RBC 5.07 M/mm3 (4.00-5.60); RDW 13.9 % (11.9-15.9); WHITE BLOOD COUNT 5.1 K/mm3 (4.0-10.0)
[2022-07-05 16:24] LABS: INR 1.11 (0.83-1.09); PROTHROMBIN TIME (PATIENT) 12.8 SEC (9.7-13.0)
[2022-07-05 16:26] LABS: ACTIVATED PTT 31.5 SECONDS (25.2-36.5)
[2022-07-05 16:47] LABS: BILIRUBIN,TOTAL 0.5 mg/dL (0.2-1)
[2022-07-05 16:49] LABS: CALCIUM 9.6 mg/dL (8.5-10.1)
[2022-07-05 16:52] LABS: ALBUMIN 3.8 g/dl (3.4-5.0); BLOOD UREA NITROGEN 9.7 mg/dL (7-18)
[2022-07-05 16:54] LABS: CREATININE 0.9 mg/dL (0.55-1.3)
[2022-07-05 16:55] LABS: TOT PROT 7.7 g/dl (6.4-8.2)
[2022-07-05 17:27] VITALS: BP 149/94; PULSE 89
== END 2022-07-05 17:27 | disposition home or self-care (01) ==
LOC: JER 14:08
DX: K62.5 Hemorrhage of anus and rectum (principal)
CPT/HCPCS: 36415; 80053; 82272; 85025; 85610; 85730; 86850; 86900; 86901; 99283-25